=== PATIENT | male | born 1980 | race African-American/Black ===

== ENCOUNTER 2016-07-12 10:41 | Emergency (ER) | payer OTHER ==
[~2016-07-12] VITALS: Ht 170.2 cm; Wt 80.3 kg
[2016-07-12] MEDS ORDERED: KETOROLAC 30 MG/ML VIAL (J1885) IV ONE (12:45)
[2016-07-12] MEDS ORDERED: GASTROGRAFIN SOLUTION 30ML (Q9963) PO ONE ×2 (13:45→14:20)
--- NOTE | 2016-07-12 13:50 | REP ---
SCROTAL ULTRASOUND: Real-time sonographic evaluation of scrotum and contents performed. Testicles are normal in size and echotexture, right testicle measuring 4.4 x 2.2 x 3.2 cm and left testicle 4.1 x 2.0 x 3.2 cm. There is no testicular mass or torsion. Blood flow is seen in each testicle with duplex Doppler evaluation. Resistive index of the right testicle 0.69 and left testicle 0.60. No fluid collection is seen. IMPRESSION: Negative scrotal ultrasound. No evidence of testicular mass or torsion. Signed by Shantanu Bay MD 07/13/2016 04:37 P
[2016-07-12 14:04] LABS: BASO % 0.4 % (0.0-1.0); EOS # 0.1 K/mm3 (0.0-0.50); EOS % 1.5 % (0.0-3.0); LARGE UNSTAINED CELL # 0.1 K/mm3 (0.0-0.4); LARGE UNSTAINED CELL % 2.2 % (0.0-4.0); LYMPH % 32.3 % (24.0-44.0); MEAN CORPUSCULAR HEMOGLOBIN 30.1 pg (27.0-33.0); MEAN CORPUSCULAR HGB CONC 33.5 g/dl (32.0-36.5); MEAN CORPUSCULAR VOLUME 89.8 fl (80.0-96.0); MONO # 0.3 K/mm3 (0.0-0.8); MONO % 4.2 % (0.0-5.0); NEUTROPHILS # 3.6 K/mm3 (1.8-7.7); NEUTROPHILS % 59.4 % (36.0-66.0); PLATELET COUNT, AUTOMATED 242 k/mm3 (150-450); RED CELL DISTRIBUTION WIDTH 12.1 % (11.5-14.5); WHITE BLOOD COUNT 6.1 K/mm3 (4.0-10.0)
--- NOTE | 2016-07-12 14:24 | REP ---
INGUINAL ULTRASOUND: Real-time sonographic evaluation of inguinal regions performed to evaluate for possible hernia. Imaging is performed at rest and with Valsalva maneuver. Reported there was a history of a right inguinal hernia repair in 2004. There is no recurrent inguinal hernia on the right. However, on the left there does appear to be a fat containing left inguinal hernia seen only with Valsalva maneuver. No mass or fluid collection is seen. IMPRESSION: Small left inguinal hernia containing fat seen only with Valsalva maneuver. Signed by Shantanu Bay MD 07/13/2016 04:37 P
[2016-07-12 15:10] LABS: ALBUMIN/GLOBULIN RATIO 1.18 (1.00-1.93); ALKALINE PHOSPHATASE 87 U/L (45-117); ALT/SGPT 24 U/L (12-78); ANION GAP 8 MEQ/L (8-16); AST/SGOT 24 U/L (15-37); BILIRUBIN,DIRECT < 0.1 MG/DL (0.0-0.2); BILIRUBIN,TOTAL 0.2 MG/DL (0.2-1.0); BLOOD UREA NITROGEN 12 MG/DL (7-18); CALCIUM LEVEL 8.7 MG/DL (8.5-10.1); CARBON DIOXIDE LEVEL 28 MEQ/L (21-32); CHLORIDE LEVEL 107 MEQ/L (98-107); CREATININE FOR GFR 1.14 MG/DL (0.70-1.30); GLOMERULAR FILTRATION RATE > 60.0 (>60); GLUCOSE, FASTING 85 MG/DL (70-105); POTASSIUM SERUM 4.2 MEQ/L (3.5-5.1); SODIUM LEVEL 143 MEQ/L (136-145); TOTAL PROTEIN 7.4 GM/DL (6.4-8.2)
[2016-07-12] MEDS ORDERED: ISOVUE-370 76% 100ML VIAL (Q9967) As Ordered ONE (15:15)
[2016-07-12 15:57] VITALS: BP 125/81
--- NOTE | 2016-07-12 17:43 | REP ---
CT abdomen and pelvis with IV and oral contrast: History: Right lower quadrant pain, history of inguinal hernia repair. CT contrast dose: 100 mL of Isovue-370 is administered intravenously. Findings: Digital preliminary automotive electrical fitter radiograph demonstrates inguinal herniorrhaphy sutures in the right lower abdomen and a normal bowel gas pattern. The lung bases are essentially clear. There is some mild linear fibrosis in the right lower lobe. There is no evidence of pleural effusion. The liver and the spleen are normal in size homogeneous in texture. No adrenal lesion is seen. The pancreas is intact. No gallbladder abnormality is seen. The kidneys enhance symmetrically and are morphologically intact. Small and large intestinal bowel loops are normal. The appendix is normal in caliber without evidence of inflammation. It contains some oral contrast and air. There is no CT evidence of appendicitis. Urinary bladder, seminal vesicles, and prostate are unremarkable. Herniorrhaphy fixation devices are seen in the right inguinal soft tissues. No evidence of recurrent hernia mass or abnormal fluid collection is seen. There are a few scattered normal-sized inguinal lymph nodes. Bone window settings show no bony destructive lesion. Impression: No acute abdominal abnormality. Postoperative changes at the right inguinal herniorrhaphy site. No fluid collection or mass lesion or recurrent hernia seen. Normal appendix noted. Signed by Gregg Zacarias MD 07/12/2016 05:46 P
== END 2016-07-12 16:13 | disposition home or self-care (01) ==
LOC: M ED 12:23
DX: R10.31 Right lower quadrant pain (principal)
CPT/HCPCS: 36415; 74177; 76857; 76870; 80048; 80076; 81001; 83605; 83690; 85025; 86140; 93976; 96374; 99283; J1885; Q9963; Q9967

== ENCOUNTER → 2016-09-04 | Outpatient (CLI) | payer OTHER ==
[~2016-09-04] MED LIST: CONRAY-43 43% 50ML VIAL (Q9960) As Ordered ONE
--- NOTE | 2016-09-04 10:31 | REP ---
MR ARTHROGRAM LEFT SHOULDER: TECHNIQUE: Axial T2 fat sat, coronal oblique T1, T2 fat sat, post arthrogram axial T1 fat sat, proton density, coronal oblique T1 fat sat, T2 sat, sagittal oblique T2 fat sat, ABER T1 fat sat. There are mild hypertrophic degenerative changes of the acromioclavicular joint with downward sloping of the acromion. Acromion is not hooked in shape. No rotator cuff tendon tear is seen. There is minimal increased signal in the supraspinatus tendon compatible with minor tendinopathy/tendinitis. Biceps tendon is within the bicipital groove with no tenosynovitis. The deltoid muscle is unremarkable. There is no Hill-Sachs deformity. Biceps labral complex is intact. I do not see evidence of a labral tear. There is no bone marrow edema or occult fracture. There is a tiny amount of fluid in the subacromial bursa. No paralabral cyst is seen. IMPRESSION: Mild hypertrophic degenerative changes acromioclavicular joint. Mild supraspinatus tendinopathy/tendinitis without rotator cuff tear or labral tear. Tiny amount of fluid in the subacromial bursa. Signed by Shantanu Bay MD 09/04/2016 05:41 P
--- NOTE | 2016-09-04 17:54 | REP ---
Procedure: Left shoulder arthrogram The procedure was performed under the direct supervision of Dr. Bay. History: Left shoulder pain. The benefits and risks including but not limited to pain, infection, bleeding and anaphylaxis were explained to the patient and informed consent was obtained. Technique: The left glenohumeral joint space was localized using fluoroscopic guidance. The skin was prepped and draped in a sterile fashion. 1% lidocaine was used as a local anesthetic. Using fluoroscopic guidance a 22 gauge spinal needle was inserted and advanced into the joint. 0.5 ml of Conray 43 was injected to verify placement. 11 ml of a solution containing 20 ml of sterile saline and 0.15 ml of ProHance was injected into the joint. The needle was removed and the patient was taken to MRI for postprocedural imaging. The the patient tolerated the procedure well and there were no immediate complications. 1 second of fluoro time was utilized for this procedure. Reviewed by EDE Sequeira 09/04/2016 03:47 PSigned by Shantanu Bay MD 09/04/2016 05:38 P
== END ==
LOC: M RADPRO 06:54
PROVIDERS: ATTEND Family Medicine
DX: M65.812 Other synovitis and tenosynovitis, left shoulder (principal); M19.012 Primary osteoarthritis, left shoulder; M25.412 Effusion, left shoulder
CPT/HCPCS: 23350; 73040; 73223; A9576; Q9960

== ENCOUNTER 2018-07-23 16:38 | Emergency (ER) | payer OTHER ==
[~2018-07-23] VITALS: Ht 170.2 cm; Wt 79.5 kg
[2018-07-23] MEDS ORDERED: ONDA4TAB6 PO (18:05)
[2018-07-23] MEDS ORDERED: ONDANSETRON 4 MG ORAL DISINTEGRATING TAB (Q0162 PER 1MG) PO ONE (18:15)
--- NOTE | 2018-07-23 18:24 | REP ---
CT BRAIN WITHOUT IV CONTRAST: CT brain performed without IV contrast. Ventricles are normal in size and position with no midline shift or mass effect. Bay/white differentiation is well maintained. There is no acute hemorrhage or extra-axial fluid collection. Bone window examination demonstrates no evidence of a skull fracture. Visualized paranasal sinuses and mastoid air cells are clear. IMPRESSION: No evidence of acute bleed or fracture. Electronically Signed by Shantanu Bay MD 07/24/2018 01:31 P
[2018-07-23 18:59] VITALS: BP 132/75
== END 2018-07-23 19:00 | disposition home or self-care (01) ==
LOC: M ED 16:38
DX: S06.9X0A Unspecified intracranial injury without loss of consciousness, initial encounter (principal); F07.81 Postconcussional syndrome; W22.09XA Striking against other stationary object, initial encounter; Y92.098 Other place in other non-institutional residence as the place of occurrence of the external cause
CPT/HCPCS: 70450; 99283; Q0162

== ENCOUNTER 2019-04-14 22:33 | Emergency (ER) | payer OTHER ==
[~2019-04-14] VITALS: Ht 170.2 cm; Wt 84.1 kg
[~2019-04-14 22:33] MED LIST changes: -CONRAY-43 43% 50ML VIAL (Q9960) As Ordered ONE; +ONDA4TAB6 PO
[2019-04-14 22:34] VITALS: BP 132/76
[2019-04-15] MEDS ORDERED: NAPROXEN 250 MG TAB PO ONE (00:45)
== END 2019-04-15 00:55 | disposition home or self-care (01) ==
LOC: M ED 22:33
DX: M25.461 Effusion, right knee (principal); S50.01XA Contusion of right elbow, initial encounter; W19.XXXA Unspecified fall, initial encounter; Y92.89 Other specified places as the place of occurrence of the external cause

== ENCOUNTER → 2019-04-15 | Outpatient (CLI) | payer OTHER ==
--- NOTE | 2019-04-15 15:17 | REP ---
RIGHT ELBOW SERIES: Four views. HISTORY: Status post fall. Rule out fracture. FINDINGS: Four views right elbow demonstrate coronoid process osteoarthritic spurring. There is a large olecranon spur as well with overlying soft tissue swelling. There is no evidence of joint effusion. No fracture is seen. IMPRESSION: No fracture noted. Large olecranon spur. Osteoarthritic spurring of the coronoid process. Electronically Signed by Gregg Zacarias MD 04/15/2019 05:20 P
== END ==
LOC: M RAD 11:30
PROVIDERS: ATTEND Physician Assistant Medical
DX: S50.01XA Contusion of right elbow, initial encounter (principal); W19.XXXA Unspecified fall, initial encounter; Y92.89 Other specified places as the place of occurrence of the external cause